=== PATIENT | male | born 1995 | race Caucasian/White ===

== ENCOUNTER 2020-03-07 17:32 | Emergency (ER) | payer SELFPAY ==
--- NOTE | 2020-03-07 18:09 | EDM.PDOC ---
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 Back Pain Score (Numeric/FACES): 5 - Related Data Allergies Allergy/AdvReac Type Severity Reaction Status Date / Time No Known Allergies Allergy Verified 03/07/20 17:39 Home Meds: Home Meds . [No Known Home Meds] 03/07/20 [History] Past Medical History HEENT History: Reports: Impaired Vision Cardiovascular History: Reports: None Respiratory History: Reports: None Gastrointestinal History: Reports: None Other Gastrointestinal History: pt states does have a lot of gas and does occasionally have pain in abd. Genitourinary History: Reports: None Other Genitourinary History: occasional pain with urination Musculoskeletal History: Reports: Back Pain, Chronic Neurological History: Reports: Headaches, Chronic Other Neuro History: same side as ear pain short lasting headaches on left side Psychiatric History: Reports: ADHD, Depression Endocrine/Metabolic History: Reports: None Oncologic (Cancer) History: Reports: None Dermatologic History: Reports: Cellulitis - Infectious Disease History Infectious Disease History: Reports: None - Past Surgical History Head Surgeries/Procedures: Reports: None Male Surgical History: Reports: None Social & Family History - Family History Family Medical History: Noncontributory - Tobacco Use Smoking Status *Q: Current Every Day Smoker Years of Tobacco use: 8 Packs/Tins Daily: 1 - Caffeine Use Caffeine Use: Reports: Coffee, Energy Drinks, Soda, Tea - Recreational Drug Use Recreational Drug Use: Yes Drug Use in Last 12 Months: Yes Recreational Drug Type: Reports: Marijuana/Hashish Recreational Drug Use Frequency: Socially ED ROS GENERAL - Review of Systems Review Of Systems: See Below Constitutional: Denies: Fever, Chills, Diaphoresis HEENT: Reports: No Symptoms Respiratory: Denies: Shortness of Breath, Cough Cardiovascular: Reports: Chest Pain GI/Abdominal: Denies: Abdominal Pain, Nausea, Vomiting Musculoskeletal: Denies: Shoulder Pain, Arm Pain Neurological: Denies: Numbness, Tingling, Trouble Speaking, Difficulty Walking, Weakness ED EXAM, GENERAL - Physical Exam Exam: See Below General Appearance: Alert, Anxious (mild) Eye Exam: Bilateral Eye: PERRL Head: Atraumatic Neck: Supple Respiratory/Chest: No Respiratory Distress, Lungs Clear, Normal Breath Sounds, Other (mild tenderness R ant. chest) Cardiovascular: Regular Rate, Rhythm GI/Abdominal: Soft, Non-Tender Extremities: Normal Inspection, Normal Range of Motion. No: Leg Pain Neurological: Alert, Oriented, No Motor/Sensory Deficits EKG INTERPRETATION EKG Date: 03/07/20 Rhythm: Other (sinus tach, rate 107) [place]: Normal P-Wave: Present QRS: Normal ST-T: Other (mild nonspecific changes, no ST elevation) Course - Vital Signs Last Recorded V/S: Last Vital Signs Temp 98.2 F 03/07/20 17:42 Pulse 92 03/07/20 17:42 Resp 16 03/07/20 17:42 BP 139/77 03/07/20 17:42 Pulse Ox 99 03/07/20 17:42 - Re-Assessments/Exams Free Text/Narrative Re-Assessment/Exam: 03/07/20 21:44 EKG did not show acute findings, heart and lung exam nl. O2 sats 100 per cent. Discharge instr. as documented. Departure - Departure Time of Disposition: 18:07 Disposition: Home, Self-Care 01 Condition: Fair Clinical Impression: Atypical chest pain, Chest wall pain Instructions: Nonspecific Chest Pain, Adult, [id number] Referrals: PCP,Not In Area [Primary Care Provider] - Forms: ED Department Discharge Additional Instructions: Try avoid very heavy lifting as best you can. Alternate ice and heat to areas of pain as needed. Alternate tylenol and ibuprofen or aleve as needed. Follow up clinic if not back to normal within 7 to 10 days as expected. Return to ED as needed if symptoms worsening in any way. Sepsis Event Note (ED) - Evaluation Sepsis Screening Result: No Definite Risk - Focused Exam Vital Signs: Vital Signs Temp Pulse Resp BP Pulse Ox 03/07/20 17:42 98.2 F 92 16 139/77 99
== END 2020-03-07 18:18 | disposition home or self-care (01) ==
LOC: JD.ED 17:32
DX: R07.89 Other chest pain (principal); F17.210 Nicotine dependence, cigarettes, uncomplicated
CPT/HCPCS: 93005; 99284-25